=== PATIENT | female | born 2000 | race Caucasian/White ===

== ENCOUNTER 2023-04-12 00:07 | Emergency (ER) | payer MEDICAID ==
[~2023-04-12] VITALS: Ht 157.5 cm; Wt 66.1 kg
[2023-04-12 00:28] VITALS: BP 128/80
== END 2023-04-12 04:20 | disposition home or self-care (01) ==
LOC: ER 00:07
DX: R51.9 Headache, unspecified (principal)
CPT/HCPCS: 93005; 99281; 99283